=== PATIENT | female | born 1970 | race African-American/Black ===

== ENCOUNTER 2024-01-11 14:56 | Emergency (ER) | payer OTHER ==
[~2024-01-11] VITALS: Ht 157.5 cm; Wt 69.0 kg
[2024-01-11] MEDS: KETOROLAC TROMETH 60MG/2ML VIAL IM ONE (18:46)
[2024-01-11 18:48] VITALS: BP 166/92; PULSE 74; RESP 18; TEMP 97.8; O2SAT 97
== END 2024-01-11 19:39 | disposition home or self-care (01) ==
LOC: ER 14:56
DX: R68.84 Jaw pain (principal); I10 Essential (primary) hypertension
CPT/HCPCS: 70110; 96372; 99283; J1885